=== PATIENT | male | born 1950 | race Caucasian/White ===

== ENCOUNTER → 2016-08-28 | Outpatient (CLI) | payer OTHER ==
[~2016-08-28] VITALS: Ht 185.4 cm; Wt 121.2 kg
[~2016-08-28] MED LIST: AMLODIPINE BESY10 MG PO; ASPIRIN81 M2 PO; ATORVASTATIN CA40 MG PO; CARVEDILOL25 MG PO; HYDROCHLOROTHIA25 M2 PO; LISINOPRIL20 MG PO; LISINOPRIL40 MG PO
--- NOTE | ~2016-08-28 | HPC ---
[facility] [place] [address] PAIN MANAGEMENT CONSULTATION Name: KATI CASTRO Room #: REG Garrett ArizaDaylinStephanie.#: [id number] Admission: 08/28/16 Attend Phys: Clyde Maki DO Discharge: Date of : 48 Report #: [id number] THIS REPORT FOR: //name// CC: Clyde Resendiz MD REFERRING PHYSICIAN: Blanca Resendiz MD CHIEF COMPLAINT: Low back pain, right lower extremity pain with paresthesias. HISTORY OF PRESENT ILLNESS: As you know, the patient is a very pleasant 65-year-old male, referred to our service for lumbar radiculopathy. [facility] As the patient was unable to be seen at his pain clinic in a timely manner. The patient has undergone one epidural injection under fluoroscopic guidance, which was provided on 03/27/2016. The patient reports he received 100% improvement in overall pain, lasting for nearly 4 months. He has slow and progressive return of symptoms for which he now places pain score anywhere from 0-7/10 depending on activity. The patient states pain is exacerbated with bending movement, activity, improves with rest and sitting. He returns today in followup visit for the next in the series of epidural injections under fluoroscopic guidance in hopes of improving pain further. ALLERGIES: No known drug allergies. CURRENT MEDICATIONS: Lisinopril 20 mg once a day, aspirin 81 mg per day, atorvastatin 40 mg per day, Coreg 12.5 mg twice a day, hydrochlorothiazide 25 mg per day. SOCIAL HISTORY: The patient denies tobacco, alcohol, or IV illicit drug use. He is retired, retired years ago, unaccompanied today. PHYSICAL EXAMINATION: VITAL SIGNS: Blood pressure 137/67, pulse 64, respiratory rate 16, unlabored. The patient is 97% on room air. Height 6 feet 1 inch tall, weight 267.2 pounds, BMI calculated 35.3. GENERAL: Well developed, well nourished, and well hydrated. Morbidly obese 65-year-old male appearing stated age. He is placing pain score at 0-7/10, depending on activity. HEENT: Normocephalic and atraumatic. Pupils are equal, round, and reactive to light. EXTREMITIES: Showed no clubbing, no cyanosis, no edema. MUSCULOSKELETAL: Lower extremity strength does appear equal and symmetrical at 5/5, intact to light touch from L1 through S2 dermatomes. Seated straight leg raising negative. Supine straight leg raising positive right. Adrian's test negative. Modified Gaenslen's is positive for axial low back pain. [address] [address] PAIN MANAGEMENT CONSULTATION Name: KATI CASTRO Room #: REG CLGarrett Lundberg#: [id number] Admission: 08/28/16 Attend Phys: Clyde Maki DO Discharge: Date of : 48 Report #: [id number] ASSESSMENT: 1. Symptomatic lumbar radiculopathy. 2. Spinal stenosis of the lumbar spine. 3. Displacement of lumbar intervertebral disk with radiculopathy. 4. Lumbosacral spondylosis with radiculopathy. 5. Lumbar degeneration. 6. Chronic intractable pain. PLAN: 1. The patient has returned today in followup visit having noted 100% improvement in overall pain with the epidural injection provided in March. He has returned today in followup visit with slow and progressive return of symptoms, denying any new injury or new trauma that may have led to progression of pain. He returns today requesting a repeat epidural injection under fluoroscopic guidance to address lumbar radicular symptoms. He has been advised the risks and benefits of the procedure, states he understood and wished to proceed. 2. No medication changes were made at today's visit. The patient will continue current medical therapy as previously prescribed. 3. The patient will return to our clinic on an as needed basis for possible repeat epidural injection. PROCEDURE NOTE: DESCRIPTION OF PROCEDURE: L5-S1 right paramedian epidural steroid injection under fluoroscopic guidance. This is the second procedure of the first series that the patient is undergoing. After obtaining written consent, the patient was taken back to the fluoroscopy suite, placed in a prone position with pillow under the abdomen to decrease lumbar lordosis. The skin overlying the lumbosacral area was then prepped and draped in aseptic fashion. The L5-S1 vertebral interspace was then identified by AP fluoroscopy. The skin and subcutaneous tissue overlying the target site of injection was anesthetized with 3 mL 1% lidocaine. A 20-guage 3-1/2 inch Tuohy needle was then advanced under fluoroscopic guidance towards the epidural space using a right paramedian approach. The epidural space was identified using loss of resistance to air technique. After negative aspiration for heme or cerebrospinal fluid, a total of 1 mL of Omnipaque was injected. A lumbar epidurogram was confirmed using both AP and lateral fluoroscopy. After negative aspiration for heme or cerebrospinal fluid, 5 mL of solution containing 2 mL 40 mg per mL 80 mg total triamcinolone and 3 mL of lidocaine 1% was injected in increments. Contrast spread was noted posterior epidural space. The needle was then retracted approximately half way and needle [address] [address] PAIN MANAGEMENT CONSULTATION Name: KATI CASTRO Room #: REG CLGarrett Lu#: [id number] Admission: 08/28/16 Attend Phys: Clyde Maki DO Discharge: Date of : 48 Report #: [id number] tract flushed with 1 mL of 1% lidocaine. Needle was then removed. There were no apparent sensory or motor deficits in the lower extremity following the procedure. A sterile bandage was placed over the injection site. The heart rate, pulse, oximetry and blood pressure were continuously monitored after the procedure. There were no apparent complications. The patient tolerated the procedure well and was carefully escorted to the recovery room in stable condition. There were no apparent complications. After meeting discharge criteria, the patient was then discharged home. <ELECTRONICALLY SIGNED> By: Clyde Maki DO 09/03/16 0701 0740 1133 Clyde Maki DO /nt
[2016-08-28 14:10] VITALS: BP 137/67
== END | disposition home or self-care (01) ==
LOC: PAIN 06:24
DX: M51.16 Intervertebral disc disorders with radiculopathy, lumbar region (principal); M48.06 Spinal stenosis, lumbar region; M47.27 Other spondylosis with radiculopathy, lumbosacral region; G89.29 Other chronic pain

== ENCOUNTER → 2016-11-27 | Outpatient (CLI) | payer OTHER ==
[~2016-11-27] VITALS: Ht 185.4 cm; Wt 123.4 kg
--- NOTE | ~2016-11-27 | HPC ---
[facility] [place] [address] PAIN MANAGEMENT CONSULTATION Name: KATI CASTRO Room #: REG CHAD Lu.#: [id number] Admission: 11/27/16 Attend Phys: Clyde Maki DO Discharge: Date of : 48 Report #: [id number] THIS REPORT FOR: //name// CC: Clyde Resendiz MD DATE OF SERVICE: 11/27/2016 REFERRING PHYSICIAN: Blanca Resendiz MD CHIEF COMPLAINT: Right hip pain. HISTORY OF PRESENT ILLNESS: As you know, the patient is a 66-year-old male referred to our service for lumbar radicular symptoms. [facility] He underwent an epidural injection under fluoroscopic guidance at the last visit, which provided improvement in his buttock pain and right leg pain. He continues to experience weightbearing pain over the right hip. It appears that the patient is experiencing some right intra-articular hip symptoms. His pain is improved with sitting and lying down, in fact completely gone. His pain is elicited with movement of the right hip and weightbearing. He returns today to discuss continued right hip pain. He is denying any injury or trauma to his right hip that may have led to symptoms. ALLERGIES: No known drug allergies. CURRENT MEDICATIONS: Lisinopril, aspirin, atorvastatin, hydrochlorothiazide. SOCIAL HISTORY: The patient denies tobacco, alcohol or IV illicit drug use. He is unaccompanied today. IMAGING: No new imaging available. PHYSICAL EXAMINATION: VITAL SIGNS: Blood pressure 164/95, pulse 64, respiratory rate 16, unlabored. The patient is 98% on room air, height 6 feet 1 inches tall, weight 272 pounds, BMI calculated 35.9. GENERAL: Well-developed, well-nourished, well-hydrated, morbidly obese 66-year-old male appearing his stated age, placing current pain score at approximately a 4/10. HEENT: Normocephalic, atraumatic. Pupils equal, round, reactive to light. Extraocular muscles are intact. Sclerae nonicteric, without injection. EXTREMITIES: Show no clubbing, no cyanosis, no edema. MUSCULOSKELETAL: There is pain elicited with standing from a seated position over the right hip and into the right groin. Fabers test is mildly positive right, negative left. Seated straight leg raising negative. Supine straight [address] [address] PAIN MANAGEMENT CONSULTATION Name: KATI CASTRO Room #: REG VILLAGarrett Lundberg#: [id number] Admission: 11/27/16 Attend Phys: Clyde Maki DO Discharge: Date of : 48 Report #: [id number] leg raising remains positive on the right. Modified Gaenslen's positive for axial low back pain. ASSESSMENT: 1. Right hip pain. 2. Right hip osteoarthritis. 3. Chronic lumbar radiculopathy. 4. Spinal stenosis of the lumbar spine. 5. Displacement of lumbar intervertebral disk with radiculopathy. 6. Lumbosacral spondylosis with radiculopathy. 7. Lumbar degeneration. 8. Chronic intractable pain. PLAN: 1. The patient returns today in followup visit having noted good improvement in his back pain and his right leg pain. He continues to experience right hip pain and right groin pain, specifically with ambulation, also noted on Amalia's test today. The patient and I discussed the possibility of undergoing a right intra-articular hip injection to determine if this would improve his pain from a right hip standpoint. The patient after reviewing the risks and benefits of the procedure, agreed to undergo the procedure in hopes of improving pain. This will also help provide some diagnostic information whether or not his symptoms do improve with an intra-articular hip injection. If this is the case, he may have concomitant lumbar radicular symptoms along with intrinsic hip symptoms. He has agreed to undergo the procedure today. I advised the risks and benefits, states he understood and wished to proceed. 2. No medication changes made at today's visit. The patient to continue current medical therapy as previously prescribed. 3. The patient to return to our clinic on an as needed basis for possible repeat epidural injection. We discussed the efficacy of the right intra-articular hip injection. PROCEDURE NOTE: DESCRIPTION OF PROCEDURE: Right intra-articular hip injection under fluoroscopic guidance. After obtaining written consent, the patient was taken to the fluoroscopy suite, placed in a supine position with pillow under the knees for comfort. The image intensifier was then placed over the right hip and AP imaging allowed visualization of the hip joint. Skin overlying the area was then prepped and draped in aseptic fashion using chlorhexidine. A 27 gauge 1-1/4 inch needle was used to anesthetize skin and subcutaneous tissue with 3 mL of 1% lidocaine. A 22 gauge 3-1/2 inch spinal needle with bent tip was advanced towards the right hip under fluoroscopic guidance. The needle was advanced until it reached the [facility] [address] [place] [address] PAIN MANAGEMENT CONSULTATION Name: KATI CASTRO Room #: REG [facility] Aly#: [id number] Admission: 11/27/16 Attend Phys: Clyde Maki DO Discharge: Date of : 48 Report #: [id number] target location. Needle was then retracted approximately 1 mm and aspiration was noted to be negative for heme at this level. After negative aspiration for heme, 0.4 mL of Omnipaque was injected demonstrating an excellent right hip arthrogram. After negative aspiration for heme, 3 mL of a solution containing 1 mL 40 mg per mL, 40 mg total triamcinolone, 2 mL of bupivacaine 0.5% injected slowly. Needle retracted fdc flushed with 1 mL of 1% lidocaine and removed. Sterile bandage placed over injection site. The patient tolerated the procedure well, carefully escorted to recovery room in stable condition. No apparent complications. After meeting discharge criteria, the patient discharged home. <ELECTRONICALLY SIGNED> By: Clyde Maik DO 12/04/16 1602 0820 1221 Clyde Maki DO /nt
[2016-11-27 10:54] VITALS: BP 164/95
== END | disposition home or self-care (01) ==
LOC: PAIN 07:02
DX: M25.551 Pain in right hip (principal); M54.16 Radiculopathy, lumbar region; M48.06 Spinal stenosis, lumbar region; M51.26 Other intervertebral disc displacement, lumbar region; M47.817 Spondylosis without myelopathy or radiculopathy, lumbosacral region

== ENCOUNTER → 2017-01-23 | Outpatient (CLI) | payer OTHER ==
[~2017-01-23] VITALS: Ht 185.4 cm; Wt 125.3 kg
--- NOTE | ~2017-01-23 | HPC ---
[facility] [place] [address] PAIN MANAGEMENT CONSULTATION Name: KATI CASTRO Room #: REG CHAD ArizaDaylinStephanieDaylin#: [id number] Admission: 01/23/17 Attend Phys: Clyde Maki DO Discharge: Date of : 48 Report #: [id number] THIS REPORT FOR: //name// CC: Clyde Resendiz MD DATE OF SERVICE: 01/23/2017 REFERRING PHYSICIAN: Blanca Resendiz MD CHIEF COMPLAINT: Low back pain, right lower extremity pain, and right hip pain. HISTORY OF PRESENT ILLNESS: As you know, the patient is a 66-year-old male who returns today in followup visit requesting epidural injection under fluoroscopic guidance. He has undergone 2 epidural injections under fluoroscopic guidance, both of which provided good analgesic benefit. At last visit, the patient requested an intraarticular hip injection on the right, this did provide some improvement in symptoms, but did not provide the analgesic benefit we saw with an epidural injection. As you are aware, the patient's imaging studies do show fairly significant arthritic changes in the right hip, but also concerned of lumbar radiculopathy. He returns today requesting epidural injection in hopes of improving pain further. [facility]. ALLERGIES: No known drug allergies. CURRENT MEDICATIONS: Lisinopril, aspirin, atorvastatin, and hydrochlorothiazide. SOCIAL HISTORY: The patient denies tobacco, alcohol, IV or illicit drug use. He is unaccompanied today. IMAGING: No new imaging available. PHYSICAL EXAMINATION: VITAL SIGNS: Blood pressure 153/98, pulse 75, respiratory rate 20 and unlabored, the patient is 98% on room air, height 6 feet 1 inch tall, weight 276.2 pounds, and BMI calculated 36.4. GENERAL: Well-developed, well-nourished, well-hydrated, exogenously obese 66-year-old male, he appears stated age, placing current pain score at 4-8/10 depending on activity. HEENT: Normocephalic, atraumatic. Pupils are equal, round, and reactive to light. Extraocular muscles are intact. Sclerae are nonicteric, without injection. EXTREMITIES: Show no clubbing, no cyanosis, [place] [address] PAIN MANAGEMENT CONSULTATION Name: KATI CASTRO Room #: REG [facility].#: [id number] Admission: 01/23/17 Attend Phys: Clyde Maki DO Discharge: Date of : 48 Report #: [id number] MUSCULOSKELETAL: Seated straight leg raising negative. Supine straight leg raising positive right. Adrian test positive right. Modified Gaenslen's positive for axial low back pain. Gait is antalgic favoring right lower extremity over left. ASSESSMENT: 1. Chronic lumbar radiculopathy. 2. Spinal stenosis of lumbar spine. 3. Displacement of lumbar intervertebral disk with radiculopathy. 4. Lumbosacral spondylosis with radiculopathy. 5. Right hip pain. 6. Right hip osteoarthritis. 7. Lumbar degeneration. 8. Chronic intractable pain. PLAN: 1. The patient has returned today in followup visit requesting epidural injection under fluoroscopic guidance to address his 4-8/10 pain. The patient has done very well with previous epidural injections, hopeful to see similar improvements today. We have advised the patient of the risks and the benefits of this procedure, states he understood and wished to proceed. 2. The patient indicates he does have an appointment back with his primary care team to discuss surgical options. He certainly has pathology in the lumbar region from a stenosis standpoint that he would likely see improvement in symptoms with the surgery in the lumbar region, there is also a possibility he may need to ultimately undergo a total hip arthroplasty in the right given the arthritic changes noted on x-ray. We will defer to the primary team for any necessary for surgical consultations. PROCEDURE NOTE DESCRIPTION OF PROCEDURE: Lumbar epidural steroid injection under fluoroscopic guidance. This is the third procedure of the first series that the patient is undergoing. After obtaining written consent, the patient was taken back to the fluoroscopy suite, placed in a prone position with pillow under the abdomen to decrease lumbar lordosis. The skin overlying the lumbosacral area was then prepped and draped in aseptic fashion. The L5-S1 vertebral interspace was then identified by AP fluoroscopy. The skin and subcutaneous tissue overlying the target site of injection was anesthetized with 3 mL 1% lidocaine. A 20-gauge 3-1/2-inch Tuohy needle was then advanced under fluoroscopic guidance towards the epidural space using a right paramedian approach. The epidural space was identified using loss of resistance to air technique. After negative [address] [address] PAIN MANAGEMENT CONSULTATION Name: KATI CASTRO Room #: REG CHAD Lundberg#: [id number] Admission: 01/23/17 Attend Phys: Clyde Maki DO Discharge: Date of : 48 Report #: [id number] aspiration for heme or cerebrospinal fluid, a total of 1 mL of Omnipaque was injected. A lumbar epidurogram was confirmed using both AP and lateral fluoroscopy. After negative aspiration for heme or cerebrospinal fluid, 5 mL of a solution containing 2 mL 40 mg per mL, 80 mg total triamcinolone, 3 mL of lidocaine 1% was injected in increments. Contrast spread was noted posterior epidural space. The needle was then retracted approximately half way and needle tract flushed with 1 mL of 1% lidocaine. Needle was then removed. There were no apparent sensory or motor deficits in the lower extremity following the procedure. A sterile bandage was placed over the injection site. The heart rate, pulse, oximetry and blood pressure were continuously monitored after the procedure. There were no apparent complications. The patient tolerated the procedure well and was carefully escorted to the recovery room in stable condition. There were no apparent complications. After meeting discharge criteria, the patient was then discharged home. <ELECTRONICALLY SIGNED> By: Clyde Maki DO 01/24/17 0753 1025 1325 Clyde Maki DO /nt
[2017-01-23 09:18] VITALS: BP 153/98
== END | disposition home or self-care (01) ==
LOC: PAIN 06:09
DX: M51.16 Intervertebral disc disorders with radiculopathy, lumbar region (principal); M48.06 Spinal stenosis, lumbar region; M47.27 Other spondylosis with radiculopathy, lumbosacral region; M16.11 Unilateral primary osteoarthritis, right hip; G89.29 Other chronic pain

== ENCOUNTER → 2017-05-07 | Outpatient (CLI) | payer OTHER ==
[~2017-05-07] VITALS: Ht 185.4 cm; Wt 126.1 kg
--- NOTE | ~2017-05-07 | HPC ---
[facility] [address] [place] [address] PAIN MANAGEMENT CONSULTATION Name: KATI CASTRO Room #: REG Garrett Lu.#: [id number] Admission: 05/07/17 Attend Phys: Clyde Maki DO Discharge: Date of : 48 Report #: [id number] THIS REPORT FOR: //name// CC: Clyde Resendiz MD DATE OF SERVICE: 05/07/2017 REFERRING PHYSICIAN: Blanca Resendiz MD CHIEF COMPLAINT: Low back pain, right lower extremity pain with paresthesias. HISTORY OF PRESENT ILLNESS: As you know, the patient is a 66-year-old male who returns today in followup visit with recurrent low back pain, right posterolateral thigh pain radiating down the leg. He states pain is chronic in nature, sharp in sensation, places current pain score 3-4/10, bending movement and activity exacerbates symptoms, sitting and epidural injections tend to improve pain. The patient reports 100% improvement in overall pain with previous epidural injection lasting for nearly 3 months. He returns today in followup visit requesting to undergo the next in a series of epidural injections before initiating Eliquis therapy for which he is taking for recurrent atrial fibrillation. ALLERGIES: No known drug allergies. CURRENT MEDICATIONS: Lisinopril, aspirin, atorvastatin, carvedilol, and hydrochlorothiazide. SOCIAL HISTORY: The patient denies tobacco, alcohol, IV or illicit drug use. He is unaccompanied today. IMAGING: No new imaging available. PHYSICAL EXAMINATION: VITAL SIGNS: Blood pressure 180/108, pulse is 68, respiratory rate 14 and unlabored, the patient is 96% on room air, height 6 feet 1 inch tall, weight 275 pounds, and BMI calculated 36.7. GENERAL: Well-developed, well-nourished, well-hydrated, exogenously obese 66-year-old male, he appears his stated age, placing current pain score at around 3-4/10. HEENT: Normocephalic, atraumatic. Pupils are equal, round, and reactive to light. Extraocular muscles are intact. Speech is fluent. EXTREMITIES: Show no clubbing, no cyanosis, and no edema. MUSCULOSKELETAL: Lower extremity strength appears equal and symmetrical 5/5. Gait is antalgic favoring right lower extremity over left. Seated straight leg [facility] [address] [place] [address] PAIN MANAGEMENT CONSULTATION Name: KATI CASTRO Room #: REG [facility] Toño#: [id number] Admission: 05/07/17 Attend Phys: Clyde Maki DO Discharge: Date of : 48 Report #: [id number] raising negative. Supine straight leg raising positive on the right. Adrian's test negative. Muscle bulk and tone equal and symmetrical in lower extremities. ASSESSMENT: 1. Symptomatic lumbar radiculopathy. 2. Spinal stenosis of lumbar spine. 3. Displacement of lumbar intervertebral disk with radiculopathy. 4. Lumbosacral spondylosis with radiculopathy. 5. Right hip osteoarthritis. 6. Lumbar degeneration. 7. Chronic intractable pain. PLAN: 1. The patient has returned today in followup visit indicating recurrence of low back pain now at a level of 3-4/10. He is having distribution of symptoms radiating down the right leg, typical lumbar radicular findings for this patient. The patient reports 100% improvement in overall pain with previous epidural injection lasting for nearly 3 months. He returns today in followup visit indicating that he is to reinitiate his Eliquis therapy starting tomorrow. 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 Apparently, he is not a candidate for maze procedure, so he will be continued on anticoagulant, which will preclude us from providing injections unless he can come off the medication for a prescribed period of time per the NOAM guidelines in regards to this anticoagulation therapy. The patient has requested this epidural injection be provided today. We have advised the patient the risks and benefits of the procedure. These risks include, but are not necessarily limited to bleeding, bruising, infection, worsening of pain, no relief of pain, also risk of temporary or permanent muscle weakness, temporary or permanent paralysis and . The patient states understood and wished to proceed. 2. No medication changes were made at today's visit. The patient to continue current medical therapy as previously prescribed. 3. The patient to return to our clinic on an as needed basis for the next in a series of epidural injections. He does understand that he would have to discontinue his anticoagulant per the prescribed amount of days to undergo the procedure. 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 PROCEDURE NOTE DESCRIPTION OF PROCEDURE: L5-S1 interlaminar epidural steroid injection under fluoroscopic guidance. This is the first procedure of the second series that the patient is undergoing. After obtaining written consent, the patient was taken back to the fluoroscopy [facility] [address] [place] [address] PAIN MANAGEMENT CONSULTATION Name: KATI CASTRO Room #: REG CLGarrett Lu#: [id number] Admission: 05/07/17 Attend Phys: Clyde Maki DO Discharge: Date of : 48 Report #: [id number] suite, placed in a prone position with pillow under the abdomen to decrease lumbar lordosis. The skin overlying the lumbosacral area was then prepped and draped in aseptic fashion. The L5-S1 vertebral interspace was then identified by AP fluoroscopy. The skin and subcutaneous tissue overlying the target site of injection was anesthetized with 3 mL 1% lidocaine. A 20-gauge 3-1/2-inch Tuohy needle was then advanced under fluoroscopic guidance towards the epidural space using a paramedian approach. The epidural space was identified using loss of resistance to air technique. After negative aspiration for heme or cerebrospinal fluid, a total of 1 mL of Omnipaque was injected. A lumbar epidurogram was confirmed using both AP and lateral fluoroscopy. After negative aspiration for heme or cerebrospinal fluid, 5 mL of a solution containing 2 mL 40 mg per mL, 80 mg total triamcinolone, 3 mL lidocaine 1% was injected in increments. Contrast spread was noted posterior epidural space. The needle was then retracted approximately half way and needle tract flushed with 1 mL of 1% lidocaine. Needle was then removed. There were no apparent sensory or motor deficits in the lower extremity following the procedure. A sterile bandage was placed over the injection site. The heart rate, pulse, oximetry and blood pressure were continuously monitored after the procedure. There were no apparent complications. The patient tolerated the procedure well and was carefully escorted to the recovery room in stable condition. There were no apparent complications. After meeting discharge criteria, the patient was then discharged home. By: [id number] Clyde Maki DO /nt
[2017-05-07 08:13] VITALS: BP 180/108
== END | disposition home or self-care (01) ==
LOC: PAIN 07:11
DX: M51.16 Intervertebral disc disorders with radiculopathy, lumbar region (principal); M48.06 Spinal stenosis, lumbar region; M47.27 Other spondylosis with radiculopathy, lumbosacral region; M16.11 Unilateral primary osteoarthritis, right hip; G89.29 Other chronic pain; Z79.899 Other long term (current) drug therapy; I48.91 Unspecified atrial fibrillation

== ENCOUNTER → 2017-09-10 | Outpatient (CLI) | payer OTHER ==
[~2017-09-10] VITALS: Ht 185.4 cm; Wt 128.8 kg
[~2017-09-10] MED LIST changes: +ELIQUIS5 MG PO; +NEURONTIN 300300 M1 PO
--- NOTE | ~2017-09-10 | HPC ---
[facility] [place] [address] PAIN MANAGEMENT CONSULTATION Name: KATI CASTRO Room #: REG CLGarrett ArizaDaylinStephanie.#: [id number] Admission: 09/10/17 Attend Phys: Clyde Maki DO Discharge: Date of : 48 Report #: [id number] THIS REPORT FOR: //name// CC: Clyde Resendiz DATE OF SERVICE: 09/10/2017 CHIEF COMPLAINT: Low back pain, right lower extremity pain and paresthesias. HISTORY OF PRESENT ILLNESS: As you know, the patient is a 66-year-old male referred to our service by his primary care physician at the [facility] for evaluation for lumbar radiculopathy. He returns today having received precertification to undergo the next in a series of epidural injections. He has done very well with previous epidural injections, reducing his pain significantly. He is hopeful to see similar improvement today. He denies new injury new trauma or any changes in medical history since our last visit. He returns for next in the series of epidural injections per the request of his primary care physician. ALLERGIES: No known drug allergies. CURRENT MEDICATIONS: Eliquis 5 mg twice a day (held 3 days), lisinopril 20 mg once a day, atorvastatin 40 mg once a day, carvedilol 12.5 mg twice a day, hydrochlorothiazide 25 mg per day. SOCIAL HISTORY: The patient denies tobacco, alcohol, IV or illicit drug use. He is unaccompanied today. IMAGING: No new imaging available. PHYSICAL EXAMINATION: VITAL SIGNS: Blood pressure 122/74, pulse 63, respiratory rate 20, unlabored. The patient is 98% on room air. Height 6 feet 1 inches tall, weight 284 pounds, BMI calculated 37.5. GENERAL: Well-developed, well-nourished, well-hydrated exogenously obese 66-year-old male. He appears his stated age. He is placing pain score today 10/10. HEENT: Normocephalic, atraumatic. Pupils equal, round, reactive to light. Extraocular muscles are intact. Sclerae nonicteric without injection. EXTREMITIES: Show no clubbing, no cyanosis, no edema. MUSCULOSKELETAL: Lower extremity strength remains equal and symmetrical, though there is some giveaway strength noted with hip flexion on the right when compared to left due to pain generation. Seated straight leg raising negative. Supine straight leg raising positive on right. QUINTON test negative. Modified Gaenslen's positive for axial back pain. Ankle clonus negative. Rui is [facility] [address] [place] [address] PAIN MANAGEMENT CONSULTATION Name: KATI CASTRO Room #: REG [facility]#: [id number] Admission: 09/10/17 Attend Phys: Clyde Maki DO Discharge: Date of : 48 Report #: [id number] negative. ASSESSMENT: 1. Symptomatic lumbar radiculopathy. 2. Spinal stenosis of lumbar spine. 3. Displacement of lumbar intervertebral disk with radiculopathy. 4. Lumbosacral spondylosis with radiculopathy. 5. Lumbar degeneration. 6. Osteoarthritis of the right hip. 7. Chronic intractable pain. PLAN: 1. The patient returns today in followup visit requesting to undergo next in the series of epidural injections under fluoroscopic guidance. He reports near 100% improvement in overall pain with previous epidural injection lasting until just recently. He has had a rapid progression of pain without inciting injury or trauma. He states that it felt like the shot "just wore off." The patient returns to undergo next in the series of epidural injections in hopes of gaining similar improvement as we have seen with the last injection. He has been advised of risks and benefits of procedure, states understood and wished to proceed. 2. The patient will return to our clinic on an as-needed basis for the next in the series of epidural injections. We are pleased to see the patient has done well with previous injections, hopeful to see similar improvement today. DESCRIPTION OF PROCEDURE: L5-S1 interlaminar epidural steroid injection under fluoroscopic guidance. This is the second procedure of the second series that the patient is undergoing. After obtaining written consent, the patient was taken back to the fluoroscopy suite, placed in a prone position with pillow under the abdomen to decrease lumbar lordosis. The skin overlying the lumbosacral area was then prepped and draped in aseptic fashion. The L5-S1 vertebral interspace was then identified by AP fluoroscopy. The skin and subcutaneous tissue overlying the target site of injection was anesthetized with 3 mL 1% lidocaine. A 20-gauge 3-1/2 Tuohy needle was then advanced under fluoroscopic guidance towards the epidural space using a right paramedian approach. The epidural space was identified using loss of resistance to air technique. After negative aspiration for heme or cerebrospinal fluid, a total of 1 mL of Omnipaque was injected. A lumbar epidurogram was confirmed using both AP and lateral fluoroscopy. After negative aspiration for heme or cerebrospinal fluid, 5 mL of a solution containing 2 mL 40 mg per mL, 80 mg total triamcinolone, 3 mL of lidocaine 1% was injected in increments. Contrast spread was noted posterior [facility] [address] [place] [address] PAIN MANAGEMENT CONSULTATION Name: KATI CASTRO Room #: REG CLGarrett Lundberg#: [id number] Admission: 09/10/17 Attend Phys: Clyde Maki DO Discharge: Date of : 48 Report #: [id number] epidural space. The needle was then retracted approximately half way and needle tract flushed with 1 mL of 1% lidocaine. Needle was then removed. There were no apparent sensory or motor deficits in the lower extremity following the procedure. A sterile bandage was placed over the injection site. The heart rate, pulse, oximetry and blood pressure were continuously monitored after the procedure. There were no apparent complications. The patient tolerated the procedure well and was carefully escorted to the recovery room in stable condition. There were no apparent complications. After meeting discharge criteria, the patient was then discharged home. <ELECTRONICALLY SIGNED> By: Clyde Maki DO 09/17/17 0908 [id number] [id number] Clyde Maki DO /nt
[2017-09-10 08:33] VITALS: BP 122/74
== END | disposition home or self-care (01) ==
LOC: PAIN 07:11
DX: M51.16 Intervertebral disc disorders with radiculopathy, lumbar region (principal); M48.061 Spinal stenosis, lumbar region without neurogenic claudication; M47.27 Other spondylosis with radiculopathy, lumbosacral region; M16.11 Unilateral primary osteoarthritis, right hip; G89.29 Other chronic pain; Z79.899 Other long term (current) drug therapy; Z98.890 Other specified postprocedural states

== ENCOUNTER → 2017-09-24 | Outpatient (CLI) | payer OTHER ==
[~2017-09-24] VITALS: Ht 185.4 cm; Wt 124.0 kg
--- NOTE | ~2017-09-24 | HPC ---
[facility] [place] [address] [address] [place] [address] PAIN MANAGEMENT CONSULTATION Name: KATI CASTRO Room #: REG CHAD Lu.#: [id number] Admission: 09/24/17 Attend Phys: Clyde Maki DO Discharge: Date of : 48 Report #: [id number] THIS REPORT FOR: //name// CC: Clyde Resendiz MD DATE OF SERVICE: 09/24/2017 REFERRING PHYSICIAN: Blanca Resendiz MD CHIEF COMPLAINT: Low back pain, right lower extremity pain and paresthesias. HISTORY OF PRESENT ILLNESS: As you know, the patient is a 66-year-old male who returns today in followup visit indicating no improvement in symptoms with previous epidural injection. He continues to experience low back pain, right lower extremity pain radiating into the right hip, groin and down the anterior thigh. He states pain is chronic in nature, sharp in sensation. The patient places current pain score 8/10, exacerbated with walking worsens as the day goes on, alleviated with sitting and many times nothing. He returns today in followup visit to discuss options for treatment. Again, the patient received zero improvement in overall pain with the epidural injection provided at our last visit. ALLERGIES: No known drug allergies. CURRENT MEDICATIONS: Eliquis 5 mg twice a day, lisinopril 20 mg once a day, atorvastatin 40 mg per day, carvedilol 12.5 mg twice a day, and hydrochlorothiazide 25 mg per day. SOCIAL HISTORY: The patient denies tobacco, alcohol, IV or illicit drug use. He is unaccompanied today. IMAGING: No new imaging available. PQRS: The patient has no known osteoarthritis or rheumatoid arthritis. No treatment for these conditions. He is not a fall risk, but did sustain a fall recently when falling out of his pickup truck, this was due to a limb being caught before he is able to get out of the truck. He is on blood thinners, Eliquis. He does have a history of hypertension, which is treated medically. He is not on opioid therapy and not on a contract with [facility]. His risk tool is low for opioid abuse. Functional assessment is 45/70 indicating [id number] interference of daily activities secondary to pain. PHYSICAL EXAMINATION: VITAL SIGNS: Blood pressure 148/86, pulse 68, respiratory rate 20 and [facility] [address] [place] [address] PAIN MANAGEMENT CONSULTATION Name: KATI CASTRO [facility] #: [facility] [id number] Admission: 09/24/17 Attend Phys: Clyde Maki DO Discharge: Date of : 48 Report #: [id number] unlabored, the patient is 98% on room air, height 6 feet 1 inch tall, weight 273.4 pounds, and BMI calculated 36.1. GENERAL: Well-developed, well-nourished, well-hydrated, exogenously obese 66-year-old male, appearing stated age, pain is rated at 8/10. HEENT: Normocephalic, atraumatic. Pupils are equal, round, and reactive to light. Speech is fluent. The patient deemed a good historian. EXTREMITIES: Show no clubbing, no cyanosis, and no edema. MUSCULOSKELETAL: Lower extremity strength is symmetrical 5/5, some giveaway strength noted with hip flexion and knee extension on the right when compared to left. Pain is located in the buttock and groin area. Seated straight leg raising negative. Supine straight leg raising positive on the right. Adrian's test negative. Modified Gaenslen's positive for axial low back pain. ASSESSMENT: 1. Lumbar radiculopathy. 2. Spinal stenosis of lumbar spine. 3. Displacement of lumbar intervertebral disk with radiculopathy. 4. Lumbosacral spondylosis with radiculopathy. 5. Lumbar degeneration. 6. Right hip pain. 7. Chronic intractable pain. PLAN: 1. The patient returns today in followup visit having indicated no improvement in symptoms with previous epidural injection. We have discussed with the patient the fact that he is receiving no benefit with these injections, these would no longer be provided. The patient was originally referred to our clinic to trial these epidural injections, unfortunately his efficacy has been reduced greatly, he is now receiving no improvement in symptoms, the prior injection "just wore off" quickly. I believe that further evaluation through a PCP is necessary before move forward with any other treatment options. 2. The patient will be sent back to the [facility] to see his primary care physician, further workup of his low back and right hip need to be completed. Possible referral to orthopedics to determine if the right hip may be a source of his symptoms would be recommended. 3. The patient will be started on gabapentin 300 mg dose, we will escalate dose to 3 tabs in morning and 3 tabs at night. I have given the patient #180 and a titration schedule and how to reach that level. He was advised anytime during the titration if he sees improvement in symptoms, stabilize at that dose; if no improvement and no side effects, continue the titration as directed, this will help for neuropathic pain. He was given this prescription with 2 refills, 3 months' worth of medication. 4. We will see the patient back in followup visit if requested for [address] [address] PAIN MANAGEMENT CONSULTATION Name: KATI CASTRO Room #: REG [facility].#: [id number] Admission: 09/24/17 Attend Phys: Clyde Maki DO Discharge: Date of : 48 Report #: [id number] interventional treatments. Treatment options from a medication standpoint can be handled through his PCP. <ELECTRONICALLY SIGNED> By: Clyde Maki DO 10/02/17 1130 0912 [id number] Clyde Maki DO /nt
[2017-09-24 09:15] VITALS: BP 148/86
== END ==
LOC: PAIN 07:09
DX: M48.061 Spinal stenosis, lumbar region without neurogenic claudication (principal); M51.16 Intervertebral disc disorders with radiculopathy, lumbar region